=== PATIENT | female | born 1990 | race African-American/Black ===

== ENCOUNTER 2018-12-18 15:19 | Emergency (ER) | payer MEDICAID, OTHER ==
[~2018-12-18] VITALS: Ht 157.5 cm; Wt 50.0 kg
[2018-12-18] MEDS ORDERED: HYDROCORTISONE 1% RECTAL CREAM 30GM PR ONE (17:30)
[2018-12-18 17:39] VITALS: BP 114/74
[2018-12-18] MEDS ORDERED: HYDROCORTISONE 2.5% RECTAL CREAM 30GM PR NR (17:45)
== END 2018-12-18 17:41 | disposition home or self-care (01) ==
LOC: ER 15:19
DX: K64.4 Residual hemorrhoidal skin tags (principal)
CPT/HCPCS: 99283

== ENCOUNTER 2020-04-08 11:04 | Observation (INO) | payer MEDICAID ==
[~2020-04-08] VITALS: Ht 160 cm; Wt 65.8 kg
[2020-04-08] MEDS ORDERED: PREN1TAB23 PO (11:30)
== END 2020-04-08 13:55 | disposition home or self-care (01) ==
LOC: OB TRIAGE 11:04 → 8 EST LDRP 12:47
PROVIDERS: ADMIT Obstetrics & Gynecology; ATTEND Obstetrics & Gynecology
DX: O26.893 Other specified pregnancy related conditions, third trimester (principal); R10.30 Lower abdominal pain, unspecified; Z3A.37 37 weeks gestation of pregnancy
CPT/HCPCS: 59025; 76805; 76818; G0378; 99281